=== PATIENT | male | born 1940 | race Caucasian/White ===

== ENCOUNTER 2019-09-29 09:27 | Outpatient (CLI) | payer OTHER, SELFPAY ==
[2019-09-29 10:17] LABS: Basophils Absolute Auto 0.1 K/mm3 (0.0-0.1); Basophils Percent Auto 0.7 % (0.2-1.2); Eosinophils Absolute Auto 0.8 K/mm3 (0-0.3); Eosinophils Percent Auto 11.2 % (0-4.4); Hematocrit 40.7 % (42.0-52.0); Immature Granulocyte Absolute 0.02 K/mm3 (0.00-0.031); Immature Granulocyte Percent A 0.3 % (0-0.5); Lymphocytes Absolute Auto 1.33 K/mm3 (0.9-3.2); Lymphocytes Percent Auto 19.6 % (18.3-44.2); Mean Corpuscular HGB Conc 34.4 g/dl (32-36); Mean Corpuscular Hemoglobin 29.4 pg (26-34); Mean Corpuscular Volume 85.3 fl (80-100); Mean Platelet Volume 10.3 fl (7.4-10.4); Monocytes Absolute Auto 0.6 K/mm3 (0.1-0.6); Neutrophils Percent Auto 59.2 % (45.5-73.1); Platelet Count Result 176 k/mm3 (150-375); Red Blood Count 4.77 M/mm3 (4.6-6.20); Red Cell Distribution Width 13.1 % (11.5-14.5); White Blood Count 6.8 K/mm3 (4.5-10.0)
[2019-09-29 10:39] LABS: Alanine Aminotransferase 21 U/L (4-50); Albumin Level 4.2 g/dL (3.5-5.1); Alkaline Phosphatase 47 U/L (38-126); Aspartate Amino Transferase 24 U/L (17-59); Bilirubin,Total 0.4 mg/dL (0.2-1.3); Blood Urea Nitrogen 23 mg/dL (9-20); Calcium 8.9 mg/dL (8.4-10.2); Carbon Dioxide 24 mmol/L (22-30); Chloride 100 mmol/L (98-107); Estimated Glomerular Filt Rate 49; Glucose 108 mg/dL (75-110); Potassium 4.3 mmol/L (3.4-5.0); Sodium 136 mmol/L (137-145)
[2019-09-29 11:07] LABS: Prostate Specific Antigen 3.2 ng/mL (< OR = 4.0)
== END 2019-09-29 09:28 | disposition home or self-care (01) ==
PROVIDERS: PCP Internal Medicine; Visit Provider Internal Medicine
DX: N40.0 Benign prostatic hyperplasia without lower urinary tract symptoms (principal); Z12.5 Encounter for screening for malignant neoplasm of prostate; Z79.899 Other long term (current) drug therapy
CPT/HCPCS: 36415; 80053; 84153; 84443; 85025

== ENCOUNTER 2020-09-26 21:36 | Emergency (ER) | payer OTHER, SELFPAY ==
--- NOTE | ~2020-09-26 | XR_ITS ---
XR hip LT 2V w AP pelvis 09/26/2020 22:13 Indication: Hip pain Procedure: AP pelvis and 2 views left hip Comparison: No prior studies for comparison. Findings: Pelvic rings are intact. Mild osteoarthritis of the hips. Sacral foramen are symmetric. No significant soft tissue abnormality. No foreign bodies. Impression: 1: No acute bone or joint abnormality. Reviewed, dictated and finalized at location A. R TECHNICIAN Impression: 1: No acute bone or joint abnormality.
--- NOTE | ~2020-09-26 | CT_ITS ---
EXAMINATION: CT pelvis wo con DATE: 09/26/2020 23:01 INDICATION: Hip pain TECHNIQUE: Computed tomography (CT) of the pelvis was performed without intravenous contrast. The dos e-length product was 521.36 mGy-cm. Automated exposure control and iterative reconstruction technique were employed. COMPARISON: Left hip series dated 09/26/2010 FINDINGS: No acute fracture or traumatic malalignment. There is mild osteoarthritis of the hips. Ther e is moderate lower lumbar spondylosis. Prostate gland is enlarged. There is atherosclerosis. Bladder is distended. No free air or free fluid in the pelvis. No lymphadenopathy. There is a bone island at the right ilium. IMPRESSION: 1. No acute fracture. Reviewed, dictated and finalized at location A. K TOP ROLLER IMPRESSION: 1. No acute fracture.
[2020-09-26 21:39] VITALS: BP 159/79; PULSE 69; RESP 14; TEMP 36.4; O2SAT 100
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
[2020-09-26] MEDS: HYDROcodone/acetaminophen (*CRX) 5-325 MG TABLET 1 TAB PO (22:31)
--- NOTE | 2020-09-27 00:15 | PC.NURSE ---
Pt given crutch training and crutches per EDP aishwarya verbal order
[2020-09-27 00:54] VITALS: BP 152/83; PULSE 69; RESP 16; TEMP 36.8; O2SAT 98
== END 2020-09-27 00:55 | disposition home or self-care (01) ==
PROVIDERS: Emergency Provider Emergency Medicine; PCP Internal Medicine
DX: S79.919A Unspecified injury of unspecified hip, initial encounter (principal); N18.30 Chronic kidney disease, stage 3 unspecified; Z87.891 Personal history of nicotine dependence; X50.1XXA Overexertion from prolonged static or awkward postures, initial encounter
CPT/HCPCS: 72192; 73502; 99284; A9270

== ENCOUNTER → 2021-02-21 08:45 | Outpatient (REF) | payer OTHER, SELFPAY | LOC: ANHLAB 08:45 | PROVIDERS: PCP Internal Medicine; Visit Provider Nurse Practitioner | DX: C44.529 Squamous cell carcinoma of skin of other part of trunk (principal) | CPT/HCPCS: 88305 ==

== ENCOUNTER → 2021-04-24 09:33 | Outpatient (REF) | payer OTHER, SELFPAY | LOC: ANHLAB 09:33 | PROVIDERS: PCP Internal Medicine; Visit Provider Nurse Practitioner | DX: C44.529 Squamous cell carcinoma of skin of other part of trunk (principal) | CPT/HCPCS: 88305; 88331 ==

== ENCOUNTER → 2021-07-25 10:43 | Outpatient (REF) | payer OTHER, SELFPAY | LOC: ANHLAB 10:43 | PROVIDERS: PCP Internal Medicine; Visit Provider Nurse Practitioner | DX: C44.629 Squamous cell carcinoma of skin of left upper limb, including shoulder (principal) | CPT/HCPCS: 88305 ==

== ENCOUNTER 2021-12-25 01:37 | Day surgery (SDC) | payer OTHER, SELFPAY ==
[2021-12-12 10:37] VITALS: BMI 28.0
--- NOTE | 2021-12-22 14:30 | PM.HPGS ---
History of Present Illness History of Present Illness Consent: Risks, benefits, and alternatives have been discussed and questions answered. Patient agrees to proceed with procedure. Chief complaint: neoplasm screening Narrative: Gunner Carey is a 81 year old male Referred for colon cancer screening. Review of Systems Review of Systems: All systems reviewed & are unremarkable except as noted in HPI and below PMFSH Past Medical History Medical History CKD (chronic kidney disease) stage 3, GFR 30-59 ml/min Surgical History Surgical History History of appendectomy Family History Family History Mother Patient's mother is , Onset Age: 98 Father Patient's father is , Onset Age: 99 Sibling Family history of malignant neoplasm of breast in first degree relative Social History Social History Years smoked: 1 Smoking status: Former smoker Tobacco type: cigarettes Second hand tobacco smoke exposure: No Smoking end date: 08/26/1954 Alcohol intake: never Substance use: never Substance use type: does not use Living arrangements: with family Meds Home Medications and Allergies Home Medications Medication Instructions Recorded Confirmed Type ascorbate calcium (vitamin C) 500 500 mg PO DAILY 12/14/20 12/12/21 History mg tablet garlic 300 mg capsule 300 mg PO DAILY 12/14/20 12/12/21 History cholecalciferol (vitamin D3) 50 50 mcg PO DAILY 12/27/20 12/12/21 History mcg (2,000 unit) capsule tumeric 100 mg-kimberley 150 mg-olive 1 cap PO DAILY 02/21/21 12/12/21 History 50 mg-oreg 150 mg-caprylate capsule donepezil 5 mg tablet 5 mg PO QHS #90 tablet 07/17/21 12/12/21 Rx calcium carbonate 200 mg calcium 200 mg PO DAILY tablet 08/16/21 12/12/21 History (500 mg) chewable tablet Allergies Allergy/AdvReac Type Severity Reaction Status Date / Time No Known Allergies Allergy Mild Verified 12/25/21 08:23 Exam Resp: Auscultation: clear to auscultation bilaterally Cardio: Rate: regular rate Rhythm: regular rhythm GI: GI Palp: Yes Soft to palpation and No Tenderness to palpation present (GI) Assessment and Plan Assessment and plan (1) Colon cancer screening: Code(s): Z12.11 - Encounter for screening for malignant neoplasm of colon Status: Acute Assessment and Plan: Colonoscopy with possible biopsy or polypectomy or cautery or injection of substances.
[2021-12-25 08:24] VITALS: BP 149/69; PULSE 56; RESP 18; TEMP 36.6; O2SAT 99
[2021-12-25] MEDS: LACTATED RINGERS 1,000 ML 150 ML IV CONT (08:27)
--- NOTE | 2021-12-25 08:53 | WPDANESEPPF ---
Anes - Initial Pre Proc Eval Procedure: Operation Date: 12/25/21 09:00 Proposed Procedures p Screening Colonoscopy - Desean Jaramillo MD Date/Time: 12/25/21 08:53 Surgeon: Desean Jaramillo MD Pre Op Diagnosis: neoplasm screening Patient Data Age: 81 Gender: M Height: 1.78 m Weight: 86.5 kg Last Vital Signs Temp 98 F 12/25/21 08:24 Pulse 56 L 12/25/21 08:24 Resp 18 12/25/21 08:24 BP 149/69 H 12/25/21 08:24 Pulse Ox 99 12/25/21 08:24 Allergies Allergy/AdvReac Type Severity Reaction Status Date / Time No Known Allergies Allergy Mild Verified 12/25/21 08:23 Home Medications Medication Instructions Recorded Confirmed Type ascorbate calcium (vitamin C) 500 500 mg PO DAILY 12/14/20 12/25/21 History mg tablet garlic 300 mg capsule 300 mg PO DAILY 12/14/20 12/25/21 History cholecalciferol (vitamin D3) 50 50 mcg PO DAILY 12/27/20 12/25/21 History mcg (2,000 unit) capsule tumeric 100 mg-kimberley 150 mg-olive 1 cap PO DAILY 02/21/21 12/25/21 History 50 mg-oreg 150 mg-caprylate capsule donepezil 5 mg tablet 5 mg PO QHS #90 tablet 07/17/21 12/25/21 Rx calcium carbonate 200 mg calcium 200 mg PO DAILY tablet 08/16/21 12/25/21 History (500 mg) chewable tablet Patient hx anesthesia problems: none Family hx anesthesia problems: none Results Review: All pre-operative results and documents have been reviewed as part of the pre-operative evaluation. [facility] Past Medical History Medical History CKD (chronic kidney disease) stage 3, GFR 30-59 ml/min Surgical History Surgical History History of appendectomy Family History Family History Mother Patient's mother is , Onset Age: 98 Father Patient's father is , Onset Age: 99 Sibling Family history of malignant neoplasm of breast in first degree relative Social History Social History Years smoked: 1 Smoking status: Former smoker Tobacco type: cigarettes Second hand tobacco smoke exposure: No Smoking end date: 08/26/1954 Alcohol intake: never Substance use: never Substance use type: does not use Living arrangements: with family Anes - Eval Final PreProcedure Day of Procedure 12/25/21 08:53 Patient weight: normal Heart: regular rate and rhythm Lungs: clear to auscultation Airway: Mallampati scale class II Neurological: alert and oriented Last oral intake: >/= 8 hours ASA classification: II Emergent: no Anesthetic plan: proceed Anesthesia type and monitoring: general GIVS and standard monitoring Results Review: All pre-operative results and documents have been reviewed as part of the pre-operative evaluation. Informed Consent: The patient's anesthetic plan and its attendant risks and benefits were discussed with the patient/family/POA. Questions were solicited and answers provided to the satisfaction of the patient/family/POA.
[2021-12-25 09:12] VITALS: BP 151/83; PULSE 54; RESP 20; O2SAT 98
[2021-12-25 09:22] VITALS: BP 141/77; PULSE 56; RESP 20; O2SAT 98
[2021-12-25 09:32] VITALS: BP 146/70; PULSE 58; RESP 20; O2SAT 99
== END 2021-12-25 09:54 | disposition home or self-care (01) ==
PROVIDERS: PCP Internal Medicine; Visit Provider Internal Medicine Gastroenterology
PROC: 0DJD8ZZ Inspection of Lower Intestinal Tract, Via Natural or Artificial Opening Endoscopic (ICD-10-PCS; CPT 45378; principal; 2021-12-25 09:00)
DX: Z12.11 Encounter for screening for malignant neoplasm of colon (principal); N18.30 Chronic kidney disease, stage 3 unspecified; D12.0 Benign neoplasm of cecum
CPT/HCPCS: 45385; 88305; J2704; J7120

== ENCOUNTER 2023-04-18 16:31 | Outpatient (CLI) | payer OTHER, SELFPAY ==
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
== END 2023-04-18 16:32 | disposition home or self-care (01) ==
LOC: ANHIMG 16:35
PROVIDERS: PCP Family Medicine; Visit Provider Family Medicine
DX: M54.2 Cervicalgia (principal); M47.812 Spondylosis without myelopathy or radiculopathy, cervical region; V89.2XXA Person injured in unspecified motor-vehicle accident, traffic, initial encounter
CPT/HCPCS: 72052

== ENCOUNTER 2023-06-18 08:00 | Outpatient (RCR) | payer OTHER, SELFPAY ==
--- NOTE | 2023-04-25 15:33 | OPREHPOC ---
Outpatient Therapy Plan of Care This is a Multidisciplinary Plan of Care that may contain components documented by all disciplines (PT, OT, and ST.) PT Problem 1 PT Problem #1 Knowledge Deficit PT Goal 1 Goal 1* indep with home exercise program 2* correct neck and shoulder position with HEP PT Problem 2 PT Problem #2 Pain PT Goal 1 Goal 1* pt report pain at worst rating of 3/10 PT Problem 3 PT Problem #3 Impaired Range of Motion PT Goal 1 Goal active cervical ROM in sittin* rotation R 45' 2* rotation L 50' no pain increase reported with active cervical 3* rotation R 4* rotation L 5* side bend R 6* side bend L 7* flexion PT Problem 4 PT Problem #4 Impaired Strength PT Goal 1 Goal 1* pt perform 20 reps of cervical-scapular strengthening in standing and on mat
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
--- NOTE | 2023-05-14 12:28 | PCPTNOTE ---
pt did not show for today's appt; called pt and was not able to leave a message due to not having voice message set up.
--- NOTE | 2023-05-17 10:54 | OPREHPOC ---
Outpatient Therapy Plan of Care This is a Multidisciplinary Plan of Care that may contain components documented by all disciplines (PT, OT, and ST.) PT Problem 1 PT Problem #1 Knowledge Deficit PT Goal 1 Goal 1* indep with home exercise program 2* correct neck and shoulder position with HEP Progress Partially Met Comment 05-17-23 progress met goals continue towards goals to progress education/HEP; PT Problem 2 PT Problem #2 Pain PT Goal 1 Goal 1* pt report pain at worst rating of 3/10 Progress Not Met Comment 05-17-23 progress not met--pain rating of 5/10 at worst continue towards goal PT Problem 3 PT Problem #3 Impaired Range of Motion PT Goal 1 Goal active cervical ROM in sittin* rotation R 45' 2* rotation L 50' no pain increase reported with active cervical 3* rotation R 4* rotation L 5* side bend R 6* side bend L 7* flexion Progress Partially Met Comment 05-17-23 progress met goals 5,7; continue towards goals ADD: 8* no pain with R shoulder IR PT Problem 4 PT Problem #4 Impaired Strength PT Goal 1 Goal 1* pt perform 20 reps of cervical-scapular strengthening in standing and on mat Progress Partially Met Comment 05-17-23 progress improved but goal not met continue towards
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
--- NOTE | 2023-05-30 15:13 | PCPTNOTE ---
Pt no showed visit today.
--- NOTE | 2023-06-06 10:58 | OPREHPOC ---
Outpatient Therapy Plan of Care This is a Multidisciplinary Plan of Care that may contain components documented by all disciplines (PT, OT, and ST.) PT Problem 1 PT Problem #1 Knowledge Deficit PT Goal 1 Goal 1* indep with home exercise program 2* correct neck and shoulder position with HEP Progress Partially Met Comment 05-17-23 progress met goals continue towards goals to progress education/HEP; PT Goal 2 Progress Partially Met Comment 06-06-23 progress met goal 1 continue towards goals PT Problem 2 PT Problem #2 Pain PT Goal 1 Goal 1* pt report pain at worst rating of 3/10 Progress Not Met Comment 05-17-23 progress not met--pain rating of 5/10 at worst continue towards goal PT Goal 2 Progress Met Comment 06-06-23 progress met goal NEW GOAL: 1* pain rating at 1/10 at worst PT Problem 3 PT Problem #3 Impaired Range of Motion PT Goal 1 Goal active cervical ROM in sittin* rotation R 45' 2* rotation L 50' no pain increase reported with active cervical 3* rotation R 4* rotation L 5* side bend R 6* side bend L 7* flexion Progress Partially Met Comment 05-17-23 progress met goals 5,7; continue towards goals ADD: 8* no pain with R shoulder IR PT Goal 2 Progress Partially Met Comment 06-06-23 progress met goals except 2
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
== END 2023-06-18 12:35 | disposition home or self-care (01) ==
LOC: ANHPT 08:00
PROVIDERS: PCP Family Medicine; Visit Provider Family Medicine
DX: M54.2 Cervicalgia (principal); V89.2XXA Person injured in unspecified motor-vehicle accident, traffic, initial encounter
CPT/HCPCS: 97110; 97140; 97161; 97530; 99199

== ENCOUNTER 2023-07-05 07:57 | Outpatient (CLI) | payer OTHER, SELFPAY ==
--- NOTE | 2023-07-05 08:01 | ECHO_ITS ---
Patient Info Name: Gunner Carey Age: 83 years : 1940 Gender: Male Ht: 70 in Wt: 193 lbs BSA: 2.10 m2 HR: 65 bpm BP: 146 / 80 mmHg Exam Date: 07/05/2023 8:03 AM Exam Location: Echo Lab Patient Status: Outpatient Admit Date: 07/05/2023 Staff Ordering Physician: Tobias Rushing MD Pest Controller Assistant: Kenisha Romano RDCS Attending Provider: Tobias Rushing MD Referring Physician: Сергей REYNOSO; Exam Type: CA echo dop color flow w con Study Info Indications R01.1 - Cardiac murmur, unspecified Complete two-dimensional, color flow and Doppler transthoracic echocardiogram is performed with contrast to opacify the left ventricle and to improve the deliniation of the left ventricle endocardial borders. Contrast/Agitated Saline Contrast/Ag. Saline: Definity Amount: 4.00 ml Administered By: Kenisha Romano RDCS New IV Access: Dorsum of Hand Site Condition: No extravasation, Site dressing applied and IV removed Summary 1. Definity contrast administered improved wall motion interpretation. 2. Left ventricular chamber dimension is normal. 3. Left ventricular systolic function is normal, estimated at 60-65%. 4. The left ventricular diastolic function is grade I diastolic dysfunction. 5. E/e' 8 is minimally elevated. 6. Left atrial chamber dimension is mildly enlarged. 7. There is severe aortic valve sclerosis. 8. There is mild aortic valve stenosis with a peak velocity of 210.12 cm/s, mean gradient of 10 mmHg, and aortic valve area of 2.02 cm2. 9. There is trace aortic valve regurgitation. 10. The mitral valve has moderately calcified annulus. 11. There is mild mitral valve regurgitation. 12. There is trace tricuspid valve regurgitation. 13. No pulmonary hypertension, estimated pulmonary arterial systolic pressure is 27 mmHg. Left Ventricle E/e' 8 is minimally elevated. Definity contrast administered improved wall motion interpretation. Left ventricular chamber dimension is normal. Left ventricular systolic function is normal, estimated at 60-65%. The left ventricular diastolic function is grade I diastolic dysfunction. Right Ventricle Right ventricular systolic function is normal and with normal TAPSE 2.6 cm. Right ventricular chamber dimension is normal. Left Atria Left atrial chamber dimension is mildly enlarged. Right Atria Right atrial chamber dimension is normal. Aortic Valve The aortic valve is trileaflet. There is severe aortic valve sclerosis. There is mild aortic valve stenosis with a peak velocity of 210.12 cm/s, mean gradient of 10 mmHg, and aortic valve area of 2.02 cm2. There is trace aortic valve regurgitation. Pulmonic Valve There is no pulmonic regurgitation. Mitral Valve The mitral valve has moderately calcified annulus. There is no mitral valve stenosis. There is mild mitral valve regurgitation. Tricuspid Valve There is trace tricuspid valve regurgitation. No pulmonary hypertension, estimated pulmonary arterial systolic pressure is 27 mmHg. Pericardium/Pleural There is no pericardial effusion. Inferior Vena Cava Normal inferior vena cava with >50% collapse upon inspiration consistent with normal right atrial pressure, 5 mmHg. Aorta The aortic root size at the sinus of Valsalva is normal. Left Ventricular Outflow Tract Name Value Normal LVOT 2D
[2023-07-05] MEDS: PERFLUTREN LIPID MICROSPHERES 1.5 ML VIAL DILUTED TO 10 ML TOTAL VOLUME IV PUSH (09:50)
--- NOTE | 2023-07-08 11:18 | IVDEFINITY ---
Prior to administration of IV Definity the patient was educated on the risks and benefits of the imaging enhancing agent including potential adverse side effects. The patient verbalized understanding. Allergies were verified. No exclusion criteria were identified and at least one of the following inclusion criteria were met: 1) physician request, 2) patient technically difficult to image (per the [place] [employer] guidelines of two or more segments not discernable within the apical view), or 3) questionable left ventricular function. ?
== END 2023-07-05 07:58 | disposition home or self-care (01) ==
LOC: ANHCARD 07:58
PROVIDERS: PCP Family Medicine; Visit Provider Family Medicine
DX: R93.1 Abnormal findings on diagnostic imaging of heart and coronary circulation (principal); I35.8 Other nonrheumatic aortic valve disorders; I35.0 Nonrheumatic aortic (valve) stenosis; I35.1 Nonrheumatic aortic (valve) insufficiency; I34.81 Nonrheumatic mitral (valve) annulus calcification; I34.0 Nonrheumatic mitral (valve) insufficiency; I07.1 Rheumatic tricuspid insufficiency
CPT/HCPCS: C8929; Q9957

== ENCOUNTER 2024-08-24 13:22 | Emergency (ER) | payer OTHER, SELFPAY ==
[2024-08-24 13:30] VITALS: BP 150/56; PULSE 62; RESP 20; TEMP 37; O2SAT 96
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
[2024-08-24 14:50] VITALS: BP 149/65
[2024-08-24 14:50] LABS: EDCOVIDSCREEN Negative (Negative)
[2024-08-24 14:52] LABS: EDINFLUASCREEN Positive (Negative); EDINFLUBSCREEN Negative (Negative)
== END 2024-08-24 14:50 | disposition home or self-care (01) ==
PROVIDERS: Emergency Provider Nurse Practitioner Family; PCP Family Medicine
DX: J10.1 Influenza due to other identified influenza virus with other respiratory manifestations (principal); Z20.822 Contact with and (suspected) exposure to COVID-19; Z87.891 Personal history of nicotine dependence; N18.30 Chronic kidney disease, stage 3 unspecified; Z85.828 Personal history of other malignant neoplasm of skin
CPT/HCPCS: 87426; 87804; 99213; G0463

== ENCOUNTER 2024-08-28 14:16 | Outpatient (CLI) | payer OTHER, SELFPAY ==
--- NOTE | ~2024-08-28 | US_ITS ---
EXAMINATION: US soft tissue head and neck DATE: 08/28/2024 14:43 INDICATION: Localized swelling, mass and lump, neck. TECHNIQUE: Multiple grayscale and Doppler ultrasound images of the head and neck were obtained. COMPARISON: None FINDINGS: In the posterior right neck, there is a 1.7 x 1.4 x 1.1 cm subcutaneous hypoechoic mass. IMPRESSION: 1. 1.7 cm subcutaneous mass in the right posterior neck, most likely a sebaceous cyst. Less likely co nsiderations include peripheral sheath tumor, sarcoma, and yannick metastatic disease. Reviewed, dictated and finalized at location A. WARE DEVELOPER IMPRESSION: 1. 1.7 cm subcutaneous mass in the right posterior neck, most likely a sebaceou s cyst. Less likely considerations include peripheral sheath tumor, sarcoma, an d yanncik metastatic disease.
== END 2024-08-28 14:17 | disposition home or self-care (01) ==
PROVIDERS: PCP Family Medicine; Visit Provider Nurse Practitioner Family
DX: R22.1 Localized swelling, mass and lump, neck (principal)
CPT/HCPCS: 76536

== ENCOUNTER 2025-05-27 09:22 | Outpatient (CLI) | payer OTHER, SELFPAY ==
--- NOTE | ~2025-05-27 | XR_ITS ---
EXAMINATION: XR knee RT 3V, 05/27/2025 9:28 CDT HISTORY: Z79.899 - Other long-term (current) drug therapy COMPARISON: No comparisons available. Findings: No acute fracture or malalignment. Moderate tricompartmental degenerative changes Soft tissues unremarkable. Impression: No acute fracture or malalignment. Reviewed, dictated and finalized at location P. Impression: No acute fracture or malalignment.
--- NOTE | ~2025-05-27 | XR_ITS ---
EXAMINATION: XR knee LT 3V, 05/27/2025 9:28 CDT HISTORY: Z79.899 - Other intermediate (current) drug therapy COMPARISON: No comparisons available. Findings: No acute fracture or malalignment. Moderate tricompartmental degenerative changes Soft tissues unremarkable. Impression: No acute fracture or malalignment. Reviewed, dictated and finalized at location P. Impression: No acute fracture or malalignment.
== END 2025-05-27 09:23 | disposition home or self-care (01) ==
LOC: MICIMG 09:25
PROVIDERS: PCP Family Medicine; Visit Provider Family Medicine
DX: M25.569 Pain in unspecified knee (principal)
CPT/HCPCS: 73562